=== PATIENT | female | born 2005 | race Asian ===

== ENCOUNTER 2024-02-13 07:51 | Emergency (ER) | payer OTHER, SELFPAY ==
[2024-02-13 07:54] VITALS: BP 98/64; PULSE 80; RESP 16; TEMP 36.6; O2SAT 97; BMI 21.3
--- NOTE | 2024-02-13 08:03 | ED_ITS ---
HPI - General Adult General Date Seen: 02/13/24 Chief complaint: Abdominal Pain Stated complaint: Abdominal Pain,nausea Time Seen by Provider: 02/13/24 08:03 History of Present Illness HPI narrative: This is a generally healthy 18-year-old female. She is a student at [employer], [place] and she is from [place]. She is accompanied to the ER this morning by her mother for evaluation of acute onset of left lower quadrant abdominal pain. She has been healthy and well lately. Normal last night and slept okay. She was awoken from sleep at about 630 this morning with episode of severe pain in her left lower quadrant. It made her nauseous and she vomited once. She had a normal bowel movement says that it was more painful while she was defecating but she was really having pain in her rectum. No other diarrhea or unusual stools. Last menstrual cycles about 2 weeks ago. No vaginal bleeding or spotting. No trouble with urination. No dysuria, hematuria, urgency, frequency. No fevers but she has felt hot. When the pain is severe it seems to radiate to her left medial thigh. No other radiation down the leg. It does not radiate through to her back or flank. As far she recalls she has been healthy. Subsequently mother recalls that she did have and a left ovarian cyst a couple of years ago. We were able to get copies of the previous ultrasound report through [facility]. She had an ultrasound done by Dr. Urias through [facility] on 07/20/2022. That showed normal right ovary and uterus. She had a left ovarian cyst, 3 cm, consistent with a hemorrhagic cyst. Related Data Home Medications Medication Instructions Recorded Confirmed venaflexine 75 mg PO DAILY 02/13/24 02/13/24 Previous Rx's Medication Instructions Recorded hydrocodone 5 mg-acetaminophen 325 1 tab PO Q6H PRN pain #7 tabs 02/13/24 mg tablet Allergies Allergy/AdvReac Type Severity Reaction Status Date / Time cat dander Allergy Mild sneezing Verified 02/13/24 08:01 and watery eyes dog dander Allergy Mild sneezing, Verified 02/13/24 08:01 watery eyes PFSH PFSH Social History Smoking Status: Never smoker How often do you have a drink containing alcohol: never AUDIT-C Alcohol total score: 0 Non-prescribed substance use: denies use Exam Narrative: Exam Narrative: Constitutional: Appears well-developed and well-nourished. Alert. Conversant. Uncomfortable in lying in the right lateral decubitus position because that is her position of comfort. She is able to reposition to supine for an abdominal exam. HENT: Head: Atraumatic. Nose: Nose normal. Mouth/Throat: Oral mucosa is clear and moist. no trismus. Pharynx normal. Eyes: Conjunctivae normal. EOM normal. Pupils equal, round, and reactive to light. No scleral icterus. Neck: Normal range of motion. Neck supple. No tracheal deviation present. Cardiovascular: Normal rate, regular rhythm. No gallop. No friction rub. No murmur heard. Symmetric radial artery pulses Pulmonary/Chest: Effort normal. No stridor. No respiratory distress. No wheezes. No rales. No rhonchi . No tenderness. Abdominal: Soft. Bowel sounds normal. No distension. No mass. Marked left lower quadrant tenderness. No right-sided tenderness. No CVA tenderness. No rebound. No guarding. Musculoskeletal: RUE: Normal range of motion. No tenderness. No deformity LUE: Normal range of motion. No tenderness. No deformity RLE: Normal range of motion. No edema. No tenderness. No deformity LLE: Normal range of motion. No edema. No tenderness. No deformity Lymph: No inguinal adenopathy. Neurological: Alert and oriented to person, place, and time. Normal strength. CN II-VII intact. No sensory deficit. GCS eye subscore is 4. GCS verbal subscore is 5. GCS motor subscore is 6. Normal coordination Skin: Skin is warm and dry. No rash noted. No pallor. Normal capillary refill. Psychiatric: Normal mood. Normal affect. Const: Vital Signs, click to edit/add: Vital Signs - 24 hr 02/13/24 07:54 Temperature 97.8 F Pulse Rate [Pulse Oximeter] 80 Respiratory Rate 16 Blood Pressure [Ri ght Upper Arm] 98/64 Pulse Oximetry 97 Oxygen Delivery Me thod Room Air Course Vital Signs Vital signs: Initial Vital Signs Temperature 97.8 F 02/13/24 07:54 Temperature Source Temporal Artery Scan 02/13/24 07:54 Pulse Rate 80 02/13/24 07:54 Respiratory Rate 16 02/13/24 07:54 Blood Pressure 98/64 02/13/24 07:54 Blood Pressure Mean 75 02/13/24 07:54 Blood Pressure Position Sitting 02/13/24 07:54 Pulse Oximetry 97 02/13/24 07:54 Oxygen Delivery Method Room Air 02/13/24 07:54 Vital Signs Temperature 97.8 F 02/13/24 07:54 Pulse Rate 80 02/13/24 07:54 Respiratory Rate 16 02/13/24 07:54 Blood Pressure 98/64 02/13/24 07:54 Pulse Oximetry 97 02/13/24 07:54 Oxygen Delivery Method Room Air 02/13/24 07:54 Temperature 97.8 F 02/13/24 07:54 Pulse Rate 80 02/13/24 07:54 Respiratory Rate 16 02/13/24 07:54 Blood Pressure 98/64 02/13/24 07:54 Pulse Oximetry 97 02/13/24 07:54 Oxygen Delivery Method Room Air 02/13/24 07:54 Medications Administered Medications: Discontinued Medications Generic Name Dose Route Start Last Admin Trade Name Freq PRN Reason Stop Dose Admin Sodium Chloride 1,000 mls @ 1,000 mls/hr 02/13/24 08:15 02/13/24 09:30 0.9 % Sodium Chloride 1000 Ml IV 02/13/24 09:14 Infused .Q1H BRYN Infusion Ketorolac Tromethamine 15 mg 02/13/24 08:04 02/13/24 08:27 Ketorolac 15 Mg/Ml Inj IVP 02/13/24 08:05 15 mg ONCE ONE Administration Ondansetron HCl 4 mg 02/13/24 08:04 02/13/24 08:27 Ondansetron 2 Mg/Ml Inj IVP 02/13/24 08:05 4 mg ONCE ONE Administration Medical Decision Making MDM Narrative Medical decision making narrative: Presented to the Emergency Department with abrupt onset of left lower quad abdominal pain. The differential diagnosis of abdominal pain includes: complication, ovarian pathology,, Bowel Obstruction, Ulcer, Ischemia, Cholecystitis, Diverticulitis, Pancreatitis, UTI, kidney stone, Enteritis/Colitis, amongst many other etiologies. Less likely would be appendicitis given that the pain is all in the left lower quadrant. Initial concern was for possible kidney stone. Urinalysis is normal and stone protocol CT shows no evidence for obstructing stone. There is possibly left adnexal pathology or free fluid in the left pelvis. She is not Pelvic ultrasound does suggest the presence of 2 complex left ovarian cyst, possibly hemorrhagic cysts which are probably the cause for her pain. No evidence for torsion. Without any signs of significant free pelvic fluid or active bleeding with stable vital signs at this point I do not think the patient needs to be admitted for observation, serial hemoglobins, or taken to the OR for emergent surgery. Pain is much improved after Toradol given here in the ER. No evidence for life-threatening cause or need for emergent surgery or hospital admission is detected today. Discussed that she will need close outpatient follow-up with sugar chipper machine operator for recheck and to arrange follow-up ultrasound in the next 4-6 weeks. The patient also understands that if they worsen, they should return to the ER right away. I discussed the uncertainty about the diagnosis and answered the patient's questions. Abdominal pain return precautions discussed. Recommend ibuprofen 600 mg p.o. q.6 hours or acetaminophen 1000 mg q.6 hours. Prescription for [place] provided for breakthrough pain. Opiate precautions re viewed. Lab Data Labs: Lab Results 02/13/24 02/13/24 02/13/24 Range/Units 08:27 09:41 Unknown WBC 11.05 H (4.50-11.00) K/uL RBC 4.34 (4.00-5.20) m/uL Hgb 13.5 (12.0-16.0) gm/dL Hct 40.4 (33.0-51.0) % MCV 93 (80-100) fL MCH 31 (26-34) pg MCHC 33 (32-36) gm/dL RDW Coeff of Ryan 12.6 (11.5-15.5) % Plt Count 285 (140-440) K/uL Neut % (Auto) 83.8 H (42.0-72.0) % Lymph % (Auto) 9.2 L (20-44) % Pasco % (Auto) 5.8 (0.0-11.0) % Eos % (Auto) 0.5 (0.0-7.0) % Baso % (Auto) 0.5 (0.0-3.0) % Neut # (Auto) 9.30 H (1.7-7.0) K/uL Lymph # (Auto) 1.00 (0.90-2.90) K/uL Pas[place] # (Auto) 0.60 (0.00-0.90) K/UL Eos # (Auto) 0.10 (0.00-0.50) K/uL Baso # (Auto) 0.10 (0.00-0.30) K/uL Abs Immat Gran (auto) 0.00 (0.00-0.30) K/uL Imm/Tot Granulo (auto) 0.2 % Sodium 139 (135-149) mmol/L Potassium 3.8 (3.6-5.1) mmol/L Chloride 105 (96-114) mmol/L Carbon Dioxide 28 (20-32) mmol/L Anion Gap 6 L (7-15) mEq/L BUN 11 (5-24) mg/dL Creatinine 0.6 (0.6-1.2) mg/dL Estimated Creat Clear 124.75 Estimated GFR 133 ml/min Glucose 99 (60-115) mg/dL Calcium 9.5 (8.7-10.8) mg/dL Urine Color Yellow (Yellow) Urine Appearance Cloudy A (Clear) Urine pH 8.0 (5.0-8.5) Ur Specific Villalba 1.025 (1.000-1.030) Urine Protein Negative (Negative) Urine Glucose (UA) Negative (Negative) Urine Ketones Negative (Negative) Urine Blood Negative (Negative) Urine Nitrite Negative (Negative) Urine Bilirubin Negative (Negative) Urine Urobilinogen 0.2 (0.2-1.0) Ur Leukocyte Esterase Negative (Negative) Urine RBC 0-2 (0-2) Urine WBC 2-5 (0-5) Ur Squamous Epith Cells Moderate A (None-Few) Amorphous Sediment Many A (None) Urine Bacteria Moderate A (None) Urine HCG, Qual Negative (Negative) Imaging Data CT scan - abdomen: Attestation: I have reviewed the pertinent imaging results. Radiologist's impression: IMPRESSION: 1. Significant technical limitations due to lack of contrast and paucity of fat planes. 2. No clearly visible GI or urinary cause for pain. 3. There is free fluid in the pelvis which is mildly hyperdense suggesting this may be hemorrhage. I do not directly see the etiology. However, this raises the possibility of a ruptured cyst or a ruptured hemorrhagic cyst or perhaps adnexal inflammatory pathology. Also, correlate with HCG to exclude a ruptured ectopic . Recommend sonography of the pelvis with and without Doppler for further evaluation US Pelvic: Attestation: I have reviewed the pertinent imaging results. Radiologist's impression: Impression: 1. The uterus and endometrium appear normal 2. Physiologic follicles in the right ovary. Right ovary and right adnexa appear normal. Normal Doppler on the right 3. There are 2 complex lesions in the left ovary probably both representing h emorrhagic cysts. Largest measures 3.0 x 2.3 x 2.1 centimeters. There is no evidence of torsion on this exam 4. Very little free fluid is noted on the ultrasound though on the CT, there are findings of hyperdense fluid suggesting hemorrhage. 5. Combined findings suggest a ruptured left hemorrhagic cyst. Recommend a 6-8 week follow-up ultrasound to reassess the left ovary. Sooner evaluation should be performed by imaging or clinically if the pain persists. Discharge Plan Discharge Clinical Impression: Ovarian cyst Patient Disposition: Home, Self-Care Condition: Stable Instructions: Ovarian Cyst (ED) Additional Instructions: As we discussed, please come back to the ER right away if you have severe pain, vomiting, fever, lightheadedness, or any concern or other worsening of your condition. Please follow-up with sugar chipper machine operator for recheck within the next 1-2 week. If you want you can follow-up with your OB doctor through [place] or you can follow-up with the [facility]. To schedule an appointment with the [facility] team, you can call [phone] To treat your pain you can use ibuprofen 600 mg every 6 hours as needed or acetaminophen 1000 mg every 6 hours as needed. If you need extra pain control for severe pain use the prescription pain killer or return to the ER right away. Use caution with prescription pain killer-[place]. This can cause drowsiness, sedation, dizziness, constipation, and can be addictive. Prescriptions: New hydrocodone-acetaminophen 5-325 mg tablet 1 tab PO Q6H PRN (Reason: pain) Qty: 7 0RF No Action venaflexine 75 mg PO DAILY Follow Up/Referrals: Provider,Not a Local [Primary Care Provider] - Stand Alone Forms: [employer] Info Instructions
--- NOTE | 2024-02-13 08:04 | CT_ITS ---
Patient: MARISOL LEONARD Facility:?[facility] Patient ID:?[id number] Site Patient ID:?[id number]. Site :?[id number] Study:?CT-Abdomen/Pelvis WITHOUT-02/13/2024 10:27:27 AM Ordering Physician:SUDHEER Final Report: INDICATION: Left lower quadrant abdominal pain and vomiting. COMPARISON: There are no prior studies for comparison TECHNIQUE: CT examination of the abdomen and pelvis was performed without intravenous contrast. Thin section axial images were obtained from the lung bases through the pubic symphysis. Oral contrast was not administered. Please note that all CT scans at this facility use dose modulation, iterative reconstruction, and/or weight-based dosing when appropriate to reduce radiation dose to as low as reasonably achievable. FINDINGS: TECHNICAL NOTE: The study is significantly limited due to paucity of fat planes and lack of intravenous contrast. LUNG BASES: The lung bases as visualized appear normal.The heart size is normal at the lung bases. LIVER/BILIARY SYSTEM:The liver is normal in size and configuration given the lack of intravenous contrast. There is no visible focal mass and there is no intra- or extra hepatic biliary ductal dilatation.The gall bladder appears normal. ADRENALS: Normal non-contrast appearance KIDNEYS, URETERS and BLADDER:The kidneys appear normal given lack of intravenous contrast. No visible mass, calculus or hydronephrosis. The ureters and bladder as visualized appear normal. SPLEEN:Normal non-contrast appearance. PANCREAS: Limited evaluation due to paucity of fat planes and lack of contrast RETROPERITONEUM and MESENTERY: Limited evaluation due to paucity of fat planes and lack of contrast GASTROINTESTINAL SYSTEM: There is no evidence of diverticulitis, colitis, mechanical obstruction, or appendicitis. The small bowel as visualized appears normal.Mild fecal retention. The appendix is identified and appears normal. Limited evaluation but no convincing acute GI abnormality PELVIS: Free fluid in the pelvis which is mildly hyperdense suggesting this may be hemorrhage. This raise the possibility of and gynecologic abnormality such as a ruptured ovarian cyst or hemorrhagic cyst. Recommend sonography with Doppler for further evaluation.. OSSEOUS STRUCTURES and ABDOMINAL WALL: There is an age-appropriate appearance of the osseous structures.No significant abdominal wall defect. OTHER: No free air IMPRESSION: 1. Significant technical limitations due to lack of contrast and paucity of fat planes. 2. No clearly visible GI or urinary cause for pain. 3. There is free fluid in the pelvis which is mildly hyperdense suggesting this may be hemorrhage. I do not directly see the etiology. However, this raises the possibility of a ruptured cyst or a ruptured hemorrhagic cyst or perhaps adnexal inflammatory pathology. Also, correlate with HCG to exclude a ruptured ectopic . Recommend sonography of the pelvis with and without Doppler for further evaluation Please note that all CT scans at this facility use dose modulation, iterative reconstruction, and/or weight-based dosing when appropriate to reduce radiation dose to as low as reasonably achievable. Dictated by Silvino Nunez MD @ 02/13/2024 10:49:18 AM Signed by:?Silvino Nunez MD @02/13/2024 10:49:18 AM (Electronic Signature)
[2024-02-13] MEDS: KETOROLAC 15 MG/ML inj IVP (08:27)
[2024-02-13] MEDS: 0.9 % SODIUM CHLORIDE 1000 ml 1,000 ML IV (08:27)
[2024-02-13] MEDS: ONDANSETRON 2 MG/ML inj 4 MG IVP (08:27)
[2024-02-13 08:36] LABS: Basophils Percent Auto 0.5 % (0.0-3.0); Eosinophils Percent Auto 0.5 % (0.0-7.0); Hematocrit 40.4 % (33.0-51.0); Hemoglobin* 13.5 gm/dL (12.0-16.0); Immature Granulocytes Pct Auto 0.2 %; Lymphocytes Percent Auto 9.2 % (20-44); Mean Corpuscular HGB Conc 33 gm/dL (32-36); Mean Corpuscular Hemoglobin 31 pg (26-34); Mean Corpuscular Volume 93 fL (80-100); Monocytes Percent Auto 5.8 % (0.0-11.0); Neutrophils Percent Auto 83.8 % (42.0-72.0); Platelet Count* 285 K/uL (140-440); RDW Coefficient of Variation % 12.6 % (11.5-15.5); Red Blood Count 4.34 m/uL (4.00-5.20); White Blood Count* 11.05 K/uL (4.50-11.00)
[2024-02-13 08:38] LABS: Slide Review Reflex No
[2024-02-13 08:48] LABS: Chloride* 105 mmol/L (96-114); Potassium* 3.8 mmol/L (3.6-5.1); Sodium* 139 mmol/L (135-149)
[2024-02-13 08:51] LABS: Anion Gap 6 mEq/L (7-15); Blood Urea Nitrogen* 11 mg/dL (5-24); Calcium* 9.5 mg/dL (8.7-10.8); Carbon Dioxide* 28 mmol/L (20-32); Creatinine* 0.6 mg/dL (0.6-1.2); Est. Creatinine Clearance* 124.75; Estimated Glomerular Filt Rate 133 ml/min; Glucose* 99 mg/dL (60-115)
[2024-02-13 09:41] LABS: Appearance Urine Cloudy (Clear); Bilirubin Urine Negative (Negative); Blood Urine Negative (Negative); Color Urine Yellow (Yellow); Glucose Urine Negative (Negative); Ketones Urine Negative (Negative); Leukocyte Esterase Urine Negative (Negative); Nitrite Urine Negative (Negative); Protein Urine Negative (Negative); Specific Gravity Urine 1.025 (1.000-1.030); Urobilinogen Urine 0.2 (0.2-1.0)
[2024-02-13 10:01] LABS: Amorphous Sediment Urine Many; Bacteria Urine Moderate; RBC Urine 0-2 (0-2); Squamous Epithelial Cell Urine Moderate (None-Few)
[2024-02-13 10:10] LABS: Ur HCG Qualitative* Negative (Negative)
--- NOTE | 2024-02-13 10:57 | US_ITS ---
Patient: MARISOL LEONARD Facility:?[facility] Patient ID:?[id number] Site Patient ID:?[id number]. Site :?[id number] Study:?US-Pelvis PELVIS TV-02/13/2024 11:51:40 AM Ordering Physician:LOVELY WILLARD M.D. Final Report: Indication: Abnormal CT with left lower quadrant abdominal pain. Fluid noted in the pelvis, mildly hyperdense suggesting hemorrhage. Technique: Sonography of the pelvis was performed. The study was performed transvaginally. Grayscale and Doppler imaging was acquired. Comparison: There are no prior ultrasounds available for comparison. The CT from earlier the same day was reviewed Findings: The uterus is retroflexed. The uterus measures 7.7 x 3.2 x 3.7 centimeters which is normal. Myometrium appears normal. The endometrium measures 7 millimeters which is within normal limits. The right ovary measures 4.7 x 3.1 x 2.5 centimeters. This contains physiologic follicles. No abnormal mass is identified in the right ovary or right adnexa. Arterial and venous flow was elicited without evidence of torsion. The left ovary measures 3.6 x 3.7 x 4.3 centimeters. This contains 2 lesions. One is hyperechoic and moderately complex favor a hemorrhagic cyst. This measures 3.0 x 2.3 x 2.1 centimeters. An additional hypoechoic but not simple cystic lesion is noted on the left measuring 2.1 x 2.0 x 1.5 centimeters. Only a small amount of fluid is noted in the pelvis on this study. However, there is fairly convincing fluid on the CT as described above. The most likely scenario given the totality of the imaging is a ruptured hemorrhagic cyst. Impression: 1. The uterus and endometrium appear normal 2. Physiologic follicles in the right ovary. Right ovary and right adnexa appear normal. Normal Doppler on the right 3. There are 2 complex lesions in the left ovary probably both representing hemorrhagic cysts. Largest measures 3.0 x 2.3 x 2.1 centimeters. There is no evidence of torsion on this exam 4. Very little free fluid is noted on the ultrasound though on the CT, there are findings of hyperdense fluid suggesting hemorrhage. 5. Combined findings suggest a ruptured left hemorrhagic cyst. Recommend a 6-8 week follow-up ultrasound to reassess the left ovary. Sooner evaluation should be performed by imaging or clinically if the pain persists. Dictated by Silvino Nunez MD @ 02/13/2024 12:00:58 PM Signed by:?Silvino Nunez MD @02/13/2024 12:00:58 PM (Electronic Signature)
[2024-02-13 13:01] VITALS: BP 119/84; PULSE 70; RESP 14; O2SAT 99
== END 2024-02-13 13:04 | disposition home or self-care (01) ==
PROVIDERS: Emergency Provider Emergency Medicine
DX: N83.202 Unspecified ovarian cyst, left side (principal)
CPT/HCPCS: 36415; 74176; 76830; 80048; 81001; 81025; 85025; 87086; 93976; 96361; 96375; 99284; 99285; J1885; J2405; J7030